=== PATIENT | male | born 1960 | race Caucasian/White ===

== ENCOUNTER 2017-08-02 15:50 | Emergency (ER) | payer MEDICAID, OTHER ==
[~2017-08-02] VITALS: Ht 170.2 cm; Wt 118.0 kg
[~2017-08-02 15:50] MED LIST: BEN50 PO; FAMO-96 PO; HYDR-762 PO; IBUP-1542 PO; Levofloxacin PO; PRED20TA PO
[2017-08-02 15:52] VITALS: Ht 170.2 cm; Wt 118.0 kg
--- NOTE | 2017-08-02 22:56 | ERA ---
ER Documentation Chief Complaint Date/Time DATE: 08/02/17 TIME: 22:55 Chief Complaint RT ARM TWITCHING HPI The patient is a 57-year-old male, presenting with acute right arm twitching intermittently since 9 AM. He denies any similar symptoms previously, denies any pain, fever, chills, neck pain, chest pain, abdominal pain, vomiting, dysuria, diarrhea. He does not smoke nor drink but under a lot of stress. Past medical history: Dyslipidemia Past surgical history: Left knee ROS All systems reviewed and are negative except as per history of present illness. Medications Home Meds Active Scripts Carisoprodol* (Soma*) 350 Mg Tablet, 350 MG PO TID Y for MUSCLE SPASMS, #15 TAB Prov:AMERICA CEJA MD 08/02/17 Carisoprodol* (Soma*) 350 Mg Tablet, 350 MG PO TID Y for MUSCLE SPASMS, #15 TAB Prov:AMERICA CEJA MD 08/02/17 Prednisone* (Prednisone*) 20 Mg Tab, 40 MG PO DAILY for 4 Days, TAB Prov:Sue Bass PA-C 09/22/16 Famotidine* (Pepcid*) 20 Mg Tablet, 20 MG PO BID for 4 Days, TAB Prov:Sue Bass PA-C 09/22/16 Diphenhydramine Hcl* (Benadryl*) 50 Mg Cap, 50 MG PO Q6 Y for ALLERGIC REACTION , #30 CAP Prov:Sue Bass PA-C 09/22/16 [Levofloxacin] 500 MG TAB No Conflict Check, 500 MG PO DAILY@06 for 10 Days, TAB Prov:SADIQ MAST MD 06/03/15 Hydrocodone Bit-Acetaminophen* ([place]*) 10-325 Mg Tablet, 1 TAB PO Q4H Y for PAIN, #15 TAB Prov:JOSEPHINE CORADO MD 05/29/15 Reported Medications Ibuprofen* (Ibuprofen*) 600 Mg Tablet, 600 MG PO Q4 Y for PAIN, TAB 05/31/15 Allergies Allergies: Coded Allergies: No Known Allergy (Unverified , 05/31/15) PMhx/Soc Anesthesia Reaction: No Hx Neurological Disorder: No Hx Respiratory Disorders: No Hx Cardiac Disorders: Yes (hypercholestremia) Hx Psychiatric Problems: No Hx Miscellaneous Medical Probl: Yes (Obesity, ETOH) Hx Alcohol Use: No Hx Substance Use: No Hx Tobacco Use: No Smoking Status: Never smoker Physical Exam Vitals Vital Signs Date Time Temp Pulse Resp B/P Pulse Ox O2 Delivery O2 Flow Rate FiO2 08/02/17 23:50 66 20 135/89 96 Room Air 08/02/17 22:37 62 20 146/89 96 Room Air 08/02/17 15:52 98.3 97 20 173/87 95 Physical Exam Const: No acute distress. Head: Atraumatic. Eyes: Normal Conjunctiva. ENT: Normal External Ears, Nose and Mouth. Neck: Full range of motion. No meningismus. Resp: Clear to auscultation bilaterally. Cardio: Regular rate and rhythm. Abd: Soft, non distended, normal bowel sounds, non tender. Skin: No petechiae or rashes. Back: No midline or flank tenderness. Ext: No cyanosis, or edema. Neur: Awake and alert. No focal deficit Psych: Normal Mood and Affect. Results 24 hrs Current Medications Medications (Trade) Dose Ordered Sig/Maureen Route PRN Reason Start Time Stop Time Status Last Admin Dose Admin Carisoprodol (Soma) 350 mg ONCE ONCE PO 08/02/17 23:30 08/02/17 23:31 DC 08/02/17 23:46 Procedures/MDM EKG: Read by emergency physician Rate/Rhythm: Normal Sinus Rhythm 92 beats/min QRS, ST, T-waves: No ST elevation, no T inversion Impression: Normal EKG MEDICAL MAKING DECISION: The patient is a 57-year-old male, presenting with acute right muscle spasm, acute distress. The differential diagnoses considered include but are not limited to cervical radiculopathy, TIA, cellulitis, anxiety Departure Diagnosis: Primary Impression: Muscle spasm Additional Impression: Stress Condition: Good Additional Instructions: He was treated with Soma in the ER with good response discharged with Soma The patient's blood pressure was elevated (>120/80) but appears stable without evidence of hypertension emergency or urgency. The patient was counseled about the risks of hypertension and urged to pursue outpatient monitoring and therapy within a week with their primary care physician. AMERICA CEJA MD Aug 02, 2017 22:56
[2017-08-02] MEDS ORDERED: CARI350T PO ×2 (23:10→23:12)
[2017-08-02] MEDS ORDERED: CARISOPRODOL 350 MG TAB PO ONE (23:30)
[2017-08-02 23:50] VITALS: BP 135/89; PULSE 66; RESP 20
== END 2017-08-02 23:51 | disposition home or self-care (01) ==
LOC: E/R 15:50
DX: M62.838 Other muscle spasm (principal); F43.9 Reaction to severe stress, unspecified; E66.9 Obesity, unspecified; Z68.41 Body mass index [BMI] 40.0-44.9, adult
CPT/HCPCS: 93005; Z7502; Z7610

== ENCOUNTER 2018-04-14 04:00 | Emergency (ER) | END 2018-04-14 08:28 | disposition home or self-care (01) ==